=== PATIENT | male | born 1980 | race Caucasian/White ===

== ENCOUNTER 2017-10-05 11:42 | Emergency (ER) | payer OTHER ==
[~2017-10-05 11:42] MED LIST: PERCOCET 10/1 TABLET PO
== END 2017-10-05 12:15 | disposition left against medical advice (07) ==
LOC: EME 11:42
DX: S68.123A Partial traumatic metacarpophalangeal amputation of left middle finger, initial encounter (principal); S68.125A Partial traumatic metacarpophalangeal amputation of left ring finger, initial encounter; X58.XXXA Exposure to other specified factors, initial encounter